=== PATIENT | female | born 1995 | race American Indian/Alaskan Native ===

== ENCOUNTER 2017-03-15 18:07 | Emergency (ER) | payer MEDICAID ==
[2017-03-15 18:22] VITALS: BMI 32.8
[2017-03-15 18:24] VITALS: BP 108/78; PULSE 80; RESP 16; TEMP 99.2; O2SAT 97
[2017-03-15] MEDS ORDERED: Dexamethasone 4 mg/1 ml IVP STA (18:30)
[2017-03-15] MEDS ORDERED: Amoxicillin-Clav 875-125 mg Tab PO STA (18:30)
--- NOTE | 2017-03-15 18:35 | ED PDOC ---
Arrival/HPI - General Historian: Patient - General Chief Complaint: ENT Problem Time Seen by Provider: 03/15/17 18:30 - History of Present Illness Narrative History of Present Illness (Text): 03/15/17 18:34 21 y/o female, no pmh, nkda, c/o severe throat pain x 1 day. Aching pain, painful to swallow, feels the tonsils are swollen, no drooling, no slurred speech, no night sweat, no dizziness, no cough, no other medical or psychological complaints. (Donnie Reyna) Past Medical History - Provider Review Nursing Documentation Reviewed: Yes - Psychiatric Hx Substance Use: No Family/Social History - Physician Review Nursing Documentation Reviewed: Yes Family/Social History: Unknown Family HX Smoking Status: Never Smoked Hx Alcohol Use: No Hx Substance Use: No Allergies/Home Meds Allergies/Adverse Reactions: Allergies No Known Allergies Allergy (Verified 03/15/17 18:21) Review of Systems - Review of Systems Constitutional: absent: Fatigue, Fevers Eyes: absent: Vision Changes ENT: Sore Throat. absent: Hearing Changes Respiratory: absent: Cough, Sputum Cardiovascular: absent: Chest Pain Gastrointestinal: absent: Abdominal Pain, Nausea, Vomiting Musculoskeletal: absent: Arthralgias, Back Pain, Neck Pain, Joint Swelling, Myalgias Skin: absent: Rash, Pruritis, Skin Lesions Psychiatric: absent: Anxiety, Depression, Suicidal Ideation Physical Exam Vital Signs Reviewed: Yes Temperature: Afebrile Blood Pressure: Normal Pulse: Regular Respiratory Rate: Normal Appearance: Positive for: Well-Appearing, Non-Toxic, Comfortable Pain Distress: None Mental Status: Positive for: Alert and Oriented X 3 - Systems Exam Head: Present: Atraumatic, Normocephalic Pupils: Present: PERRL Extroacular Muscles: Present: EOMI Conjunctiva: Present: Normal Ears: Present: NORMAL TM, Normal Canal. No: Erythema Mouth: Present: Moist Mucous Membranes Pharnyx: Present: ERYTHEMA, Other (uvula mildly elongated, airway patent. ). No : EXUDATE, TONSILS ENLARGED, Peritonsilar Swelling, Uvular Deviation, Muffled/ Hoarse Voice, Strider Nose (External): Present: Atraumatic. No: Abrasion, Contusion, Laceration Nose (Internal): Present: Normal Inspection, No Active Bleeding. No: Rhinorrhea , Septal Hematoma, Epistaxis Neck: Present: Normal Range of Motion, Lymphadenopathy (+lt. anterior cervical lymphenapathy). No: Meningeal Signs, Paraspinal Tenderness Respiratory/Chest: Present: Clear to Auscultation, Good Air Exchange. No: Respiratory Distress, Accessory Muscle Use Cardiovascular: Present: Regular Rate and Rhythm, Normal S1, S2. No: Murmurs Abdomen: Present: Normal Bowel Sounds. No: Tenderness, Distention, Peritoneal Signs Back: Present: Normal Inspection Upper Extremity: Present: Normal Inspection. No: Cyanosis, Edema Lower Extremity: Present: Normal Inspection. No: Edema Neurological: Present: GCS=15, Speech Normal, Motor Func Grossly Intact, Gait Normal, Memory Normal Skin: Present: Warm, Dry, Normal Color. No: Rashes Psychiatric: Present: Alert, Oriented x 3, Normal Insight, Normal Concentration Medical Decision Making ED Course and Treatment: 03/15/17 18:35 -toradol/decadron/augmentin -discharge home with augmentin, motrin, stay hydrated, bed rest, follow up with your own pmd and ENT within 2 days, return to the ER for any new or worsening signs or symptoms. (Donnie Reyna) I was available for consultation during PA evaluation. The chart was reviewed by me, and I agree with disposition. The documented history was done by the physician manager human capital. The documented physical exam was done by the physician manager human capital. The documented procedures were done by the physician manager human capital. ( Tyron Holley) - Medication Orders Current Medication Orders: Discontinued Medications Amoxicillin/Clavulanate Potassium (Augmentin 875 Mg-125 Mg Tab) 1 tab PO STAT STA PRN Reason: Protocol Stop: 03/15/17 18:31 Last Admin: 03/15/17 19:07 Dose: 1 tab Dexamethasone (Decadron Inj) 8 mg IM STAT STA Stop: 03/15/17 19:02 Last Admin: 03/15/17 19:09 Dose: 8 mg Ketorolac Tromethamine (Toradol) 60 mg IM STAT STA Stop: 03/15/17 18:31 Last Admin: 03/15/17 19:08 Dose: 60 mg - PA / SKY DIVER / Resident Statement MD/DO has reviewed & agrees with the documentation as recorded. Disposition/Present on Arrival - Present on Arrival Any Indicators Present on Arrival: No History of DVT/PE: No History of Uncontrolled Diabetes: No Urinary Catheter: No History of Decub. Ulcer: No History Surgical Site Infection Following: None - Disposition Have Diagnosis and Disposition been Completed?: Yes Disposition Time: 18:35 Patient Plan: Discharge - Disposition Diagnosis: Elongated uvula, acquired, Pharyngitis Disposition: HOME/ ROUTINE Condition: GOOD Additional Instructions: discharge home with augmentin, motrin, stay hydrated, bed rest, follow up with your own pmd and ENT within 2 days, return to the ER for any new or worsening signs or symptoms. Prescriptions: Amoxicillin/Clavulanate [Augmentin 875 MG-125 MG] 1 tab PO BID #20 tab Ibuprofen [Motrin] 600 mg PO QID PRN #24 tab PRN Reason: Other Referrals: Leela Lvie MD [Primary Care Provider] - Follow up with primary Toribio Andrade DO [Staff Provider] - Follow up with primary [facility] at [facility] [Outside] - Follow up with primary Forms: WORK NOTE
== END 2017-03-15 20:00 | disposition home or self-care (01) ==
LOC: ED 18:07
DX: J02.9 Acute pharyngitis, unspecified (principal); Q38.6 Other congenital malformations of mouth
CPT/HCPCS: 96372; 99282; J1100; J1885

== ENCOUNTER 2017-05-14 09:00 | Emergency (ER) | payer MEDICAID ==
[2017-05-14 09:00] VITALS: BMI 32.8
[2017-05-14 09:29] VITALS: RESP 18
--- NOTE | 2017-05-14 09:44 | ED PDOC ---
Arrival/HPI - General Chief Complaint: ENT Problem Time Seen by Provider: 05/14/17 09:43 Historian: Patient - History of Present Illness Narrative History of Present Illness (Text): 05/14/17 09:43 21 y/o female, no significant pmh, nkda, c/o throat pain and fatigue started this morning. aching pain, aggravated by swallowing, no coughing, no fever or chills, no chest pain or shortness of breath, no numbness or tingling, no other medical or psychological complaints, no difficulty swallowing, no drooling, no other medical or psychological complaints. Past Medical History - Provider Review Nursing Documentation Reviewed: Yes - Reproductive Menopause: No - Psychiatric Hx Substance Use: No - Anesthesia Hx Anesthesia: Yes Hx Anesthesia Reactions: No Hx Malignant Hyperthermia: No Family/Social History - Physician Review Nursing Documentation Reviewed: Yes Family/Social History: Unknown Family HX Smoking Status: Never Smoked Hx Alcohol Use: No Hx Substance Use: No Allergies/Home Meds Allergies/Adverse Reactions: Allergies No Known Allergies Allergy (Verified 03/15/17 18:21) Review of Systems - Review of Systems Constitutional: absent: Fatigue, Fevers Eyes: absent: Vision Changes ENT: Sore Throat. absent: Hearing Changes Respiratory: absent: SOB, Cough Cardiovascular: absent: Chest Pain Gastrointestinal: absent: Abdominal Pain, Nausea, Vomiting Skin: absent: Rash, Pruritis Neurological: absent: Headache, Dizziness Psychiatric: absent: Anxiety, Depression Physical Exam Vital Signs Reviewed: Yes Vital Signs Temp Pulse Resp BP Pulse Ox 05/14/17 09:28 98.2 F 72 18 134/76 99 Temperature: Afebrile Blood Pressure: Normal Pulse: Regular Respiratory Rate: Normal Appearance: Positive for: Well-Appearing, Non-Toxic, Comfortable Pain Distress: Moderate Mental Status: Positive for: Alert and Oriented X 3 - Systems Exam Head: Present: Atraumatic, Normocephalic Pupils: Present: PERRL Extroacular Muscles: Present: EOMI Conjunctiva: Present: Normal Mouth: Present: Moist Mucous Membranes Pharnyx: Present: ERYTHEMA, Other (uvula elongated). No: EXUDATE, TONSILS ENLARGED, Peritonsilar Swelling, Uvular Deviation, Muffled/Hoarse Voice, Strider , Soft Palate/Uvular Edema Neck: Present: Normal Range of Motion Respiratory/Chest: Present: Clear to Auscultation, Good Air Exchange. No: Respiratory Distress, Accessory Muscle Use Cardiovascular: Present: Regular Rate and Rhythm, Normal S1, S2. No: Murmurs Abdomen: Present: Normal Bowel Sounds. No: Tenderness, Distention, Peritoneal Signs Back: Present: Normal Inspection Upper Extremity: Present: Normal Inspection. No: Cyanosis, Edema Lower Extremity: Present: Normal Inspection. No: Edema Neurological: Present: GCS=15, CN II-XII Intact, Speech Normal Skin: Present: Warm, Dry, Normal Color. No: Rashes Psychiatric: Present: Alert, Oriented x 3, Normal Insight, Normal Concentration Medical Decision Making ED Course and Treatment: 05/14/17 09:43 -rapid strep -poc hcg 05/14/17 10:50 -urine hcg negative -torado/decadron/augmentin -Discharge home with augmentin, motrin, prednisone, salt water gargling, soft food diet, stay hydrated, follow up with your own pmd and ENT within 2 days, return to the ER for any new or worsening signs or symptoms. - Lab Interpretations Lab Results: Lab Results 05/14/17 09:55: Grp A Beta Strep Ag Negative - Medication Orders Current Medication Orders: Amoxicillin/Clavulanate Potassium (Augmentin 875 Mg-125 Mg Tab) 1 tab PO STAT STA PRN Reason: Protocol Stop: 05/14/17 10:47 Dexamethasone (Decadron Inj) 8 mg IVP STAT STA Stop: 05/14/17 10:47 Ketorolac Tromethamine (Toradol) 60 mg IM STAT STA Stop: 05/14/17 10:47 - PA / JAPANESE INTERPRETER / Resident Statement MD/DO has reviewed & agrees with the documentation as recorded. Disposition/Present on Arrival - Present on Arrival Any Indicators Present on Arrival: No History of DVT/PE: No History of Uncontrolled Diabetes: No Urinary Catheter: No History of Decub. Ulcer: No History Surgical Site Infection Following: None - Disposition Have Diagnosis and Disposition been Completed?: Yes Diagnosis: Pharyngitis, Elongated uvula, acquired Disposition: HOME/ ROUTINE Disposition Time: 10:50 Condition: GOOD Additional Instructions: -Discharge home with augmentin, motrin, prednisone, salt water gargling, soft food diet, stay hydrated, follow up with your own pmd and ENT within 2 days, return to the ER for any new or worsening signs or symptoms. Prescriptions: Amoxicillin/Clavulanate [Augmentin 875 MG-125 MG] 1 tab PO BID #20 tab Ibuprofen [Motrin Tab] 600 mg PO QID PRN #24 tab PRN Reason: Other predniSONE [Prednisone] 2 tab PO DAILY #8 tab Referrals: PCP,NO [Primary Care Provider] - Follow up with primary [facility] [Outside] - Follow up with primary Jorge Cao DO [Doctor Osteopathy] - Follow up with primary Forms: WORK NOTE
[2017-05-14] MEDS ORDERED: Amoxicillin-Clav 875-125 mg Tab PO STA (10:46)
[2017-05-14 11:05] VITALS: BP 121/82; PULSE 78; TEMP 98.7; O2SAT 100
== END 2017-05-14 11:18 | disposition home or self-care (01) ==
LOC: ED 09:00
DX: J02.9 Acute pharyngitis, unspecified (principal); Q38.6 Other congenital malformations of mouth; K13.79 Other lesions of oral mucosa
CPT/HCPCS: 87070; 87430; 96372; 96374; 99283; J1100; J1885